=== PATIENT | male | born 1990 | race Caucasian/White ===

== ENCOUNTER 2018-03-14 16:45 | Emergency (ER) | payer OTHER ==
[~2018-03-14] VITALS: Ht 188 cm; Wt 70.8 kg
[2018-03-14 16:49] VITALS: TEMP 36.4; Ht 188 cm; Wt 70.8 kg
[2018-03-14] MEDS ORDERED: BCTROWC EXT (17:26)
[2018-03-14] MEDS ORDERED: CEPH500C PO (18:00)
[2018-03-14 18:11] VITALS: BP 128/74; PULSE 79; O2SAT 100
[2018-03-14] MEDS ORDERED: CEPHALEXIN 500MG HOME PACK 1 EA BTL PO ONE (18:15)
--- NOTE | 2018-03-14 22:13 | EMERGENCY ROOM VISIT NOTE ---
History First contact with patient: 17:26 Chief Complaint: RASH Stated Complaint: RASH ON NOSE History of Present Illness The patient is a 27 year old male who presents to the Emergency Room with complaints of crusting, redness and discomfort in the left nostril. The patient reports that he noticed redness and drainage over the past 3 days. He was seen at the [facility] urgent care center yesterday and given a prescription for mupirocin ointment. He was also told that this could be an herpetic infection. They did culture the wound for herpes, and was told that test results should be resulted by next Thursday. The patient reports that he went home and googled his symptoms, including herpetic infections, and became concerned for possible underlying HIV infection. The patient reports being homosexual. He does report anal sex 1 month ago with protection. He does admit to frequent oral sex, but currently does not have any concerns for STI or HIV infection. He reports that he tested negative for HIV approximately 1 year ago. He reports that the crust is su in color. He rates his discomfort a 2 out of 10. The patient denies any prior history of cold sores or antibiotic resistant skin infections. Review of Systems 10 system review was performed and was negative except for pertinent positives and negatives as indicated in history of present illness Past Medical/Surgical History Medical Problems: (1) No significant past medical history Surgical Problems: (1) No history of previous surgery Family History Unremarkable Social History Smoking Status: Never Smoker Alcohol Use: occasionally Marital Status: single Occupation Status: employed Current/Historical Medications Scheduled Cephalexin Monohydrate (Keflex), 500 MG PO TID Mupirocin (Bactroban 2% Oint), 1 APPLN EXT TID Physical Exam Vital Signs Date Time Temp Pulse Resp B/P (MAP) Pulse Ox O2 Delivery O2 Flow Rate FiO2 03/14/18 18:11 79 16 128/74 100 03/14/18 16:49 36.4 99 18 151/85 99 Room Air Physical Exam CONSTITUTIONAL: Healthy and well nourished. Alert and oriented X 3. PSYCHIATRIC: The patient is quite anxious and worked up about his research and concern for this being a herpetic infection, or underlying HIV process. HEENT: Examination shows crusting from the left naris opening, and tissue just under the nostril. It is su crusted with mild underlying erythema. Right nares is clear. No conjunctival injection or scleral icterus. TMs are normal. OROPHARYNX: No tonsillar hypertrophy or posterior pharyngeal erythema. NECK: Full active range of motion without discomfort. LYMPHATICS: No cervical chain adenopathy. RESPIRATORY: Clear to auscultation bilaterally with no wheezing, crackles, rhonchi or stridor. CARDIOVASCULAR: Regular rate and rhythm with no murmurs, rubs or gallops. INTEGUMENTARY: No other obvious rashes or significant dermatologic conditions noted. NEUROLOGIC: No focal neurologic deficits noted. Medical Decision & Procedures Medications Administered Medications (Trade) Dose Ordered Sig/Adry Route Start Time Stop Time Status Last Admin Dose Admin Cephalexin Monohydrate (Keflex 500MG Home Pack) 1 homepack NOW ONCE PO 03/14/18 18:15 03/14/18 18:16 DC 03/14/18 18:10 1 HOMEPACK ED Course Patient history and physical exam were performed. Nurse's note were reviewed. Vital signs were reviewed and were normal. The patient was advised that the appearance of this infection looks like impetigo. I explained to the patient that his herpes culture would indicate whether this is potentially a herpetic infection, which I do not feel is likely. In addition to the mupirocin ointment , the patient will also be provided a prescription for Keflex. He was encouraged to continue follow-up with his PCP as needed for further management, including HIV testing if desired. The patient was happy with plan of care, and voiced understanding of all discharge instructions. Medical Decision See previous section Medication Reconcilliation Current Medication List: was personally reviewed by me Blood Pressure Screening Patient's blood pressure: Normal blood pressure Impression Primary Impression: Staphylococcus infection of nose Departure Information Dispostion Home / Self-Care Condition GOOD Prescriptions Cephalexin Monohydrate (Keflex) 500 Mg Cap 500 MG PO TID for 6 Days, #18 CAP Prov: Shon Mcmillan PA 03/14/18 Forms HOME CARE DOCUMENTATION FORM, IMPORTANT VISIT INFORMATION Patient Instructions My [facility] Additional Instructions Continue with your mupirocin ointment 3 times daily. Take Keflex 500 mg 3 times daily as prescribed. Return to the emergency department for any progressively worsening infection. The [facility] urgent care center should contact you with test results when completed. If they do not contact you by , suggest calling them for test results.
== END 2018-03-14 18:12 | disposition home or self-care (01) ==
LOC: C.EDB 16:46 → C.EDD 18:12
DX: L08.9 Local infection of the skin and subcutaneous tissue, unspecified (principal); B95.8 Unspecified staphylococcus as the cause of diseases classified elsewhere